=== PATIENT | male | born 1960 | race Caucasian/White ===

== ENCOUNTER 2024-07-25 07:45 | Day surgery (SDC) | payer BC ==
[~2024-07-25 07:45] MED LIST: Sodium Chloride 0.9% 10 ML Syringe FLUSH PRN
[2024-07-25] MEDS ORDERED: Propofol 200 MG/20 ML SDV IV ONE (07:46)
[2024-07-25] MEDS: Lactated Ringers 1,000 ML IV SCH (07:52)
[2024-07-25] MEDS ORDERED: Midazolam 1 MG/ML 2 ML SDV ONE (08:31)
[2024-07-25] MEDS ORDERED: Propofol 200 MG/20 ML SDV ONE ×2 (08:31→09:07)
[2024-07-25] MEDS ORDERED: Lactated Ringers 1,000 ML ONE (09:22)
== END 2024-07-25 11:00 | disposition home or self-care (01) ==
LOC: KA.SDS 07:45
PROVIDERS: ATTEND Family Medicine
DX: Z12.11 Encounter for screening for malignant neoplasm of colon (principal); D12.6 Benign neoplasm of colon, unspecified; G47.33 Obstructive sleep apnea (adult) (pediatric)
CPT/HCPCS: 00811; J2250; J2704; J7120